=== PATIENT | female | born 1990 | race Caucasian/White ===

== ENCOUNTER → 2023-05-29 07:23 | Outpatient (REF) | payer OTHER, SELFPAY | LOC: PNTC 07:23 | PROVIDERS: ATTENDING PHYSICIAN Obstetrics & Gynecology | DX: O09.529 Supervision of elderly multigravida, unspecified trimester (principal); O99.210 Obesity complicating pregnancy, unspecified trimester | CPT/HCPCS: 76805 ==

== ENCOUNTER → 2023-07-02 16:33 | Outpatient (REF) | payer OTHER, SELFPAY | LOC: PNTC 16:33 | PROVIDERS: ATTENDING PHYSICIAN Obstetrics & Gynecology | DX: O99.210 Obesity complicating pregnancy, unspecified trimester (principal); O09.529 Supervision of elderly multigravida, unspecified trimester | CPT/HCPCS: 76811 ==

== ENCOUNTER → 2023-08-09 16:37 | Outpatient (REF) | payer OTHER, SELFPAY | LOC: PNTC 16:37 | PROVIDERS: ATTENDING PHYSICIAN Obstetrics & Gynecology | DX: O99.210 Obesity complicating pregnancy, unspecified trimester (principal) | CPT/HCPCS: 76816 ==

== ENCOUNTER → 2023-09-20 15:50 | Outpatient (REF) | payer OTHER, SELFPAY | LOC: PNTC 15:50 | PROVIDERS: ATTENDING PHYSICIAN Obstetrics & Gynecology | DX: O99.210 Obesity complicating pregnancy, unspecified trimester (principal) | CPT/HCPCS: 76816 ==

== ENCOUNTER 2023-11-06 05:20 | Inpatient (IN) | payer OTHER, SELFPAY ==
[2023-11-06 06:16] VITALS: BP 113/68; BMI 30.8
[2023-11-06] MEDS: FENTANYL/BUPIVACAINE 100 EPIDURAL (07:18)
[2023-11-06] MEDS: SUBLIMAZE 100 MCG EPIDURAL (07:18)
[2023-11-06 07:28] LABS: % Basophils 0.3 % (0-2); % Eosinophils 0.4 % (0-6); % Immature Granulocytes 0.4 % (0-0.5); % Lymphocytes 25.8 % (20.5-51.1); % Monocytes 6.9 % (1.7-9.3); % Neutrophils 66.2 % (42.2-75.2); Absolute Lymphocytes 1.9 10^3/uL (1.2-3.4); Absolute Monocytes 0.5 10^3/uL (0.1-0.6); Absolute Neutrophils 4.8 10^3/uL (1.4-6.5); Hematocrit 26.1 % (37.0-47.0); Hemoglobin 9.2 g/dL (12.0-16.0); Mean Corp Hgb Conc. 35.2 g/dL (33.0-37.0); Mean Corpuscular Volume 79.6 fL (81.0-99.0); Mean Platelet Volume 10.7 fL (7.4-10.4); Nucleated Red Blood Cells % 0 %; Platelet Count 166 10^3/uL (130-400); Red Blood Cell Count 3.28 10^6/uL (4.20-5.40); Red Cell Dist. Width 13.6 % (11.5-14.5); White Blood Cell Count 7.2 10^3/uL (4.8-10.8)
[2023-11-06] MEDS: ANCEF 10 IV (09:02)
[2023-11-06 09:33] LABS: Cord ABG Comment CORD BLOOD
[2023-11-06 09:36] LABS: B.E. Cord ABG -3.3 mMOL/L; HCO3 Cord ABG 26.4 mmol/L; O2 Saturation % Cord ABG 38.4 %; PCO2 Cord ABG 66 mmHg; PO2 Cord ABG 21 mmHg; pH Cord ABG 7.21
[2023-11-06 09:39] LABS: B.E. Cord ABG -3.4 mMOL/L; O2 Saturation % Cord ABG 66.1 %; PCO2 Cord ABG 51 mmHg; PO2 Cord ABG 33 mmHg; pH Cord ABG 7.28
[2023-11-06] MEDS: PITOCIN 30 UNITS/NSS 500 ML IV (10:00)
[2023-11-06] MEDS: TORADOL 15 MG IV ×3 (10:00→22:04)
[2023-11-06] MEDS: ZITHROMAX INFUSION 250 IV (10:27)
[2023-11-06] MEDS: ZOFRAN 4 MG IV (19:49)
--- NOTE | 2023-11-07 03:34 | DOWNTIME ---
There was a [employer] Downtime on 11/07/2023 from 0100 to 11/07/2023 at 0255. Downtime documentation of patient's care, including medication administrations, has been reconciled in the electronic record per guidelines. Refer to the
patient's paper chart under the miscellaneous tab to see printed paper medication records and downtime forms.
[2023-11-07] MEDS: TORADOL 15 MG IV (04:16)
[2023-11-07 04:48] LABS: Hematocrit 21.7 % (37.0-47.0); Hemoglobin 7.6 g/dL (12.0-16.0); Mean Corpuscular Hgb 28.4 pg (27.0-31.0); Platelet Count 145 10^3/uL (130-400); Red Blood Cell Count 2.68 10^6/uL (4.20-5.40); Red Cell Dist. Width 13.7 % (11.5-14.5); White Blood Cell Count 9.3 10^3/uL (4.8-10.8)
[2023-11-07] MEDS: SYNTHROID 50 MCG PO (06:02)
--- NOTE | 2023-11-07 07:54 | W.PN.ANS.POP ---
Anesthesia Post Operative
- Anesthesia Post Op Note
Vital Signs Stable-See Nursing Note: Yes
Airway Patent: Yes
Adequate Pain Control: Yes
Change in Mental Status: No
Current Postoperative Nausea & Vomiting: No (patient complained of n/v for hours after c/s)
Anesthesia Complications: No
General Anesthetic Recall: No
Unplanned Admission: No
Post Op Hydration Adequate: Yes
[2023-11-07] MEDS: SENOKOT-S 1 TABLET PO (09:45)
[2023-11-07] MEDS: ZOLOFT 200 MG PO (09:45)
[2023-11-07] MEDS: TYLENOL 650 MG PO ×2 (15:13→20:55)
[2023-11-07] MEDS: MOTRIN 600 MG PO ×2 (15:14→20:54)
[2023-11-07] MEDS: MYLICON 80 MG PO (20:55)
[2023-11-08] MEDS: MOTRIN 600 MG PO ×2 (06:04→12:06)
[2023-11-08] MEDS: SYNTHROID 50 MCG PO (06:04)
[2023-11-08] MEDS: TYLENOL 650 MG PO ×2 (06:05→12:08)
[2023-11-08] MEDS: SENOKOT-S 1 TABLET PO (08:01)
[2023-11-08] MEDS: FEOSOL 325 MG PO ×2 (08:01→08:02)
[2023-11-08] MEDS: ZOLOFT 200 MG PO (08:02)
[2023-11-08 12:55] LABS: Syphilis/T. pallidum Ab Reflex Negative (Negative)
--- NOTE | 2023-11-08 13:14 | W.DS.TRANS ---
DC Summary - Setter Up
-
Discharge Instructions:
Discharge Diagnosis/Procedures cesearean section
Instructions:
Stand-Alone Forms: LDRP Delivery
Changes to Home Medications: No
Discharge Medications:
DC Medications w/original date entered in [facility]
cetirizine 10 mg tablet (Zyrtec) 10 mg PO DAILY PRN asthma 11/06/23
levothyroxine 50 mcg tablet 50 mcg PO DAILY Thyroid 11/06/23
sertraline 100 mg tablet (Zoloft) 200 mg PO DAILY Mental Health/Anxiety 11/06/23
acetaminophen 325 mg tablet 650 mg (2 x 325 mg) PO Q4HPRN PRN mild pain #0 tabs 11/08/23
ferrous sulfate 325 mg (65 mg iron) tablet (FeroSul) 325 mg PO DAILY #0 tabs 11/08/23
ibuprofen 600 mg tablet 600 mg PO Q6HPRN PRN cramps #40 tabs 11/08/23
sennosides 8.6 mg-docusate sodium 50 mg tablet (Stool Softener-Laxative) 1 tab PO DAILYPRN PRN constipation #0 tabs 11/08/23
simethicone 80 mg chewable tablet 80 mg PO TIDPRN PRN flatulence #0 tabs 11/08/23
Home Medication Changes
Pending Results: No
Total time spent discharging patient (in min): 15
== END 2023-11-08 12:58 | disposition home or self-care (01) | DRG 787 ==
LOC: LDRP 05:20
PROVIDERS: Obstetrics & Gynecology; ADMITTING PHYSICIAN Obstetrics & Gynecology; FAMILY PHYSICIAN Family Medicine
PROC: 10D00Z1 Extraction of Products of Conception, Low, Open Approach (ICD-10-PCS; 2023-11-06)
PROC: 6A550ZT Pheresis of Cord Blood Stem Cells, Single (ICD-10-PCS; 2023-11-06)
PROC: 3E0E77Z Introduction of Electrolytic and Water Balance Substance into Products of Conception, Via Natural or Artificial Opening (ICD-10-PCS; 2023-11-06)
PROC: 10H07YZ Insertion of Other Device into Products of Conception, Via Natural or Artificial Opening (ICD-10-PCS; 2023-11-06)
DX: O42.02 Full-term premature rupture of membranes, onset of labor within 24 hours of rupture (principal); O99.354 Diseases of the nervous system complicating childbirth; O76 Abnormality in fetal heart rate and rhythm complicating labor and delivery; O99.344 Other mental disorders complicating childbirth; F41.9 Anxiety disorder, unspecified; M19.90 Unspecified osteoarthritis, unspecified site; O99.52 Diseases of the respiratory system complicating childbirth; O69.2XX0 Labor and delivery complicated by other cord entanglement, with compression, not applicable or unspecified; J45.909 Unspecified asthma, uncomplicated; J45.990 Exercise induced bronchospasm; G43.909 Migraine, unspecified, not intractable, without status migrainosus; O90.81 Anemia of the puerperium; D50.0 Iron deficiency anemia secondary to blood loss (chronic); O99.284 Endocrine, nutritional and metabolic diseases complicating childbirth; E03.9 Hypothyroidism, unspecified; Z3A.38 38 weeks gestation of pregnancy; Z37.0 Single live birth
CPT/HCPCS: 88307; 82803; 85025; 85027; 86780; 86850; 86900; 86901

== ENCOUNTER 2024-10-12 10:50 | Emergency (ER) | payer OTHER, SELFPAY ==
[2024-10-12 11:04] VITALS: BP 94/48
[2024-10-12 13:13] VITALS: BMI 33.1
--- NOTE | 2024-10-12 15:44 | ED.GENMED ---
History of Present Illness
General
Chief Complaint: Withdrawal Symptoms
Source: patient
Exam Limitations: none
Time Seen by Provider: 10/12/24 11:31
Nursing documentation reviewed up to this point in time: agreed with
History of Present Illness
History of Present Illness:
Patient G3, P2, approximately 7 weeks via LMP, presents to ED secondary to withdrawal symptoms over the past 3 days, after discontinuing Cymbalta abruptly, due to . Patient reports feeling anxious, palpitations, nausea, and
jittery sensation. Denies suicidal or homicidal ideation. Denies vomiting. Denies diarrhea. Denies headache. Denies dizziness. Denies loss of appetite. Patient does report difficulty with sleeping due to anxiety. Patient was started on
Cymbalta 2 months ago and Zoloft discontinued.
Past History
Past History
ED Past Medical History: Psychiatric; Negative HTN or Hypercholesterolemia
ED Past Surgical History: None
Social History
Tobacco: Non-smoker
Alcohol: Occasional
Drug: None
Personal: Single
Living: with family
Employment: Employed
Family History
Family History: Other ( no Crohn's)
Review of Systems
Review of Systems
Allergies reviewed?: Yes
All Other Systems: ROS reviewed and negative except as documented in HPI and ROS
Constitutional: Reports no symptoms
Respiratory: Reports no symptoms; Denies trouble breathing
Cardiac: Reports palpitations
ABD/GI: Reports no symptoms
Musculoskeletal: Reports no symptoms
Skin: Reports no symptoms
Neurological: Reports no symptoms
Psychiatric: Reports anxiety
Phy Exam
Physical Exam
Physical Exam:
Physical Exam
General: mild distress, not acutely ill. afebrile
Head: nc/at. eomi
Neck: supple. no meningeal signs
Heart: tachycardic without murmur
Lungs: no acute respiratory distress. clear bilaterally
Abdomen: normal bowel sounds. not tender.
Neuro: alert and oriented x 3. no focal neurological deficits
Skin: no rash
Psychiatric: well kept. interactive and cooperative but anxious appearing
Extremities: no edema. no calf tenderness.
Course
Orders/Labs/Results
Orders:
Orders
10/12/24 15:44
Sertraline HCl [Zoloft] 100 mg PO NOW STA
Vital Signs
Initial and Last Documented VS:
Initial Vital Signs
Temp Pulse Resp BP Pulse Ox
97.6 F 107 18 94/48 97
10/12/24 11:04 10/12/24 11:04 10/12/24 11:04 10/12/24 11:04 10/12/24 11:04
Last Documented Vital Signs
Temp Pulse Resp BP Pulse Ox
97.6 F 95 12 94/48 100
10/12/24 11:04 10/12/24 13:45 10/12/24 13:45 10/12/24 11:04 10/12/24 15:44
MDM/Problems Addressed
MDM/Problems Addressed:
History and exam consistent with patient exhibiting withdrawal symptoms secondary to abrupt discontinuation of Cymbalta. However, patient is otherwise afebrile, neurologically intact, and nontoxic-appearing. After discussion with on-call COMMITTEE MEMBER,
Don and psychiatry (), decision made to offer patient following recommendation: Benadryl OTC for symptomatic control, with 3 tablets of Ativan 0.5 mg, to be used only as absolutely necessary, along with reinitiation of her Zoloft
medication. Patient will also follow-up with her primary care physician this week for reevaluation. Patient already has an appointment with her [facility] physician next week. Patient expresses understanding at time of discharge, to the care of her
family.
*Pulse Oximetry
SaO2: 100
Oxygen Mode of Delivery: Room air
Patient hypoxic: no
*Critical Care Note
Total Time (30-74mins, 75-104mins- exclusive of procedures): Not Applicable
ED Attending Note
-
Portions of this chart may have been created with voice recognition software.� Occasional wrong word or��sound alike� substitutions may have occurred due to the inherent limitations of voice recognition software.
Discharge Plan
Departure
Patient Disposition: Home (Routine Discharge)
Date of Disposition: 10/12/24
Time of Disposition: 15:44
Patient with high blood pressure during this ER visit?: No
Condition: Good
Discharge Problem:
Drug withdrawal, Anxiety
Instructions: Anxiety, Adult (DC), Drug Withdrawal (DC)
Prescriptions:
New
sertraline [Zoloft] 100 mg tablet
100 mg PO DAILY Qty: 14 0RF
lorazepam [Ativan] 0.5 mg tablet
0.5 mg PO DAILY PRN (Reason: anxiety) Qty: 3 0RF
No Action
sertraline [Zoloft] 100 mg Tablet
200 mg PO DAILY
levothyroxine 50 mcg Tablet
50 mcg PO DAILY
cetirizine [Zyrtec] 10 mg Tablet
10 mg PO DAILY PRN (Reason: asthma)
acetaminophen 325 mg Tablet
650 mg PO Q4HPRN PRN (Reason: mild pain) Qty: 0 0RF
sennosides-docusate sodium [Stool Softener-Laxative] 8.6-50 mg Tablet
1 tab PO DAILYPRN PRN (Reason: constipation) Qty: 0 0RF
ferrous sulfate [FeroSul] 325 mg (65 mg iron) Tablet
325 mg PO DAILY Qty: 0 0RF
ibuprofen 600 mg Tablet
600 mg PO Q6HPRN PRN (Reason: cramps) Qty: 40 0RF
simethicone 80 mg Tablet,Chewable
80 mg PO TIDPRN PRN (Reason: flatulence) Qty: 0 0RF
Referrals:
Kwesi Bowie DO [Family Provider, Family Practice]
Activity Restrictions/Additional Instructions:
As discussed, please follow-up with your primary care physician and [facility] physician for continual evaluation and treatment. As recommended, please take Benadryl 25 mg every 6 hours, as needed for withdrawal symptoms. Your prescription has been
sent electronically to [facility] pharmacy in [place].
Interventions
Interventions:
*Risk Screen - Suicide Last Done: 10/12/24 11:04
*General Assessment Last Done: 10/12/24 11:04
*Neglect/Abuse Screening Last Done: 10/12/24 11:04
*ED- Fall Risk Assessment Last Done: 10/12/24 13:15
*ED COVID-19 Vaccine History Last Done: 10/12/24 13:15
*Nursing Disposition Last Done: 10/12/24 16:30
ED-Skin Assessment Last Done: 10/12/24 13:16
ED- Pulmonary Assessment Last Done: 10/12/24 13:16
ED-Psychological Assessment Last Done: 10/12/24 13:16
ED- Neurological Assessment Last Done: 10/12/24 13:16
ED-EENT Assessment Last Done: 10/12/24 16:30
Discharge Date and Time
Print Language: TURKISH
[2024-10-12] MEDS: ZOLOFT 100 MG PO (16:30)
== END 2024-10-12 16:40 | disposition home or self-care (01) ==
LOC: EMR 10:50
PROVIDERS: EMERGENCY PHYSICIAN Emergency Medicine; FAMILY PHYSICIAN Family Medicine
DX: O99.891 Other specified diseases and conditions complicating pregnancy (principal); T43.205A Adverse effect of unspecified antidepressants, initial encounter; R00.2 Palpitations; O99.341 Other mental disorders complicating pregnancy, first trimester; F41.9 Anxiety disorder, unspecified; Z3A.01 Less than 8 weeks gestation of pregnancy
CPT/HCPCS: 99283

== ENCOUNTER → 2024-11-10 15:47 | Outpatient (REF) | payer OTHER, SELFPAY | LOC: RAD 15:47 | PROVIDERS: ATTENDING PHYSICIAN Obstetrics & Gynecology | DX: O26.859 Spotting complicating pregnancy, unspecified trimester (principal) | CPT/HCPCS: 76801; 76817 ==

== ENCOUNTER 2025-04-14 15:21 | Emergency (ER) | payer OTHER, SELFPAY ==
[2025-04-14 15:23] VITALS: BP 150/86
--- NOTE | 2025-04-14 16:04 | ED.GENMED ---
History of Present Illness
General
Chief Complaint: Musculo-Skeletal Complaint
Source: patient
Exam Limitations: none
Time Seen by Provider: 04/14/25 15:58
History of Present Illness
History of Present Illness:
35yoF presenting for evaluation of a right foot injury. Patient was walking down steps while carrying something when she slipped and injured her right foot. She reports hearing crack and believes that she fractured something. Injury occurred
about 1 hour ago. She denies any head injuries or other trauma. No paresthesias.
Past History
Past History
ED Past Medical History: Psychiatric; Negative HTN or Hypercholesterolemia
ED Past Surgical History: None
Social History
Tobacco: Non-smoker
Alcohol: Occasional
Drug: None
Personal: Single
Living: with family
Employment: Employed
Family History
Family History: Other ( no Crohn's)
Phy Exam
General Physical Exam
General Presentation: well appearing and no apparent distress
General age: appears stated age
General Skin: warm and dry
General Habitus: normal
General Mental: alert
ENT Exam
ENT Exam: normocephalic
Pulmonary Exam
Pulmonary Exam: no respiratory distress
Neurological Exam
Neurological Exam: alert
Thompson Coma Scale
Eye Opening: Spontaneous
Verbal Response: Oriented
Motor Response: Obeys Commands
GCS Total Score: 15
Musculoskeletal Exam
Musculoskeletal Exam: other (R foot: No deformity noted. Mild swelling to lateral foot. +Tenderness to 5th metatarsal. No tenderness to ankle. ROM of ankle intact but dorsiflexion elicits pain. 2+ DP and PT pulses. Sensation intact. )
Skin Exam
Skin Exam: normal color and warm/dry
Psychiatric Exam
Psychiatric Exam: normal mood/affect
Course
Orders/Labs/Results
Orders:
Orders
04/14/25 16:03
Ice Pack-Treatment DIRECTED
Location: R foot
Acetaminophen [Tylenol] 1,000 mg PO NOW STA
Ibuprofen [Motrin] 600 mg PO NOW STA
CR Foot - Right Min 3 Views Urgent
Comment:
Reason For Exam: fall, pain to lateral foot
04/14/25 17:06
Crutches-Treatment ONCE
Splints/Slings/Crut- Treatment ONCE
Location: Right
Type of Splint: Short Leg
Vital Signs
Initial and Last Documented VS:
Initial Vital Signs
Temp Pulse Resp BP Pulse Ox
98.2 F 72 20 150/86 100
04/14/25 15:23 04/14/25 15:23 04/14/25 15:23 04/14/25 15:23 04/14/25 15:23
Last Documented Vital Signs
Temp Pulse Resp BP Pulse Ox
98.2 F 72 20 150/86 100
04/14/25 15:23 04/14/25 15:23 04/14/25 15:23 04/14/25 15:23 04/14/25 16:05
MDM/Problems Addressed
Differential Diagnosis Includes:
35yoF here with R foot pain after an injury. No deformity on exam. +Lateral foot tenderness. RLE is neurovascularly intact. Differential diagnosis includes: fracture vs. sprain
X-rays of foot obtained which show an oblique 5th metatarsal fracture. Patient placed in a short leg splint with sugar tong by nursing staff. Neurovascular status unchanged after splint placement. Supportive care discussed and advised f/u with
orthopedics.
*Pulse Oximetry
SaO2: 100
Oxygen Mode of Delivery: Room air
Patient hypoxic: no
*Critical Care Note
Total Time (30-74mins, 75-104mins- exclusive of procedures): Not Applicable
ED Attending Note
-
Portions of this chart may have been created with voice recognition software.� Occasional wrong word or��sound alike� substitutions may have occurred due to the inherent limitations of voice recognition software.
Discharge Plan
Departure
Patient Disposition: Home (Routine Discharge)
Date of Disposition: 04/14/25
Time of Disposition: 17:28
Patient with high blood pressure during this ER visit?: Yes
Discharge Problem:
Fracture of fifth metatarsal bone of right foot
Instructions: Splint Care, Foot Fracture ED
Prescriptions:
No Action
sertraline [Zoloft] 100 mg Tablet
200 mg PO DAILY
levothyroxine 50 mcg Tablet
50 mcg PO DAILY
cetirizine [Zyrtec] 10 mg Tablet
10 mg PO DAILY PRN (Reason: asthma)
acetaminophen 325 mg Tablet
650 mg PO Q4HPRN PRN (Reason: mild pain) Qty: 0 0RF
sennosides-docusate sodium [Stool Softener-Laxative] 8.6-50 mg Tablet
1 tab PO DAILYPRN PRN (Reason: constipation) Qty: 0 0RF
ferrous sulfate [FeroSul] 325 mg (65 mg iron) Tablet
325 mg PO DAILY Qty: 0 0RF
ibuprofen 600 mg Tablet
600 mg PO Q6HPRN PRN (Reason: cramps) Qty: 40 0RF
simethicone 80 mg Tablet,Chewable
80 mg PO TIDPRN PRN (Reason: flatulence) Qty: 0 0RF
sertraline [Zoloft] 100 mg tablet
100 mg PO DAILY Qty: 14 0RF
lorazepam [Ativan] 0.5 mg tablet
0.5 mg PO DAILY PRN (Reason: anxiety) Qty: 3 0RF
Referrals:
Isael Bello MD [Active, Orthopedics]
Kwesi Bowie DO [Family Provider, Family Practice]
Activity Restrictions/Additional Instructions:
Keep splint in place until seen by orthopedics and do not get wet. Take Tylenol and ibuprofen as needed for pain. Elevate leg to help with swelling.
Please call tomorrow to schedule a follow-up appointment with orthopedic surgery.
Interventions
Interventions:
*General Assessment Last Done: 04/14/25 15:23
*Neglect/Abuse Screening Last Done: 04/14/25 15:23
*Risk Screen - Suicide (C-SSRS) Last Done: 04/14/25 15:23
ED-Musculoskeletal Assessment Last Done: 04/14/25 16:16
Discharge Date and Time
Print Language: MALAY
[2025-04-14] MEDS: TYLENOL 1000 MG PO (16:10)
[2025-04-14] MEDS: MOTRIN 600 MG PO (16:10)
== END 2025-04-14 18:14 | disposition home or self-care (01) ==
LOC: EMR 15:21
PROVIDERS: EMERGENCY PHYSICIAN Emergency Medicine; FAMILY PHYSICIAN Family Medicine
DX: S92.351A Displaced fracture of fifth metatarsal bone, right foot, initial encounter for closed fracture (principal); W10.9XXA Fall (on) (from) unspecified stairs and steps, initial encounter; Y93.01 Activity, walking, marching and hiking
CPT/HCPCS: 99283; 29515; 73630